=== PATIENT | male | born 1950 | race Caucasian/White ===

== ENCOUNTER 2016-06-17 08:14 | Outpatient (CLI) | payer OTHER ==
[2016-06-17] MEDS ORDERED: FLUMAZENIL 0.5 MG/5 ML MDV IVP ONE (09:13)
[2016-06-17] MEDS ORDERED: NALOXONE HCL 0.4 MG/ML INJ ONE (09:14)
[2016-06-17] MEDS ORDERED: fentaNYL 100 MCG/2 ML INJ ONE (09:14)
[2016-06-17] MEDS ORDERED: MIDAZOLAM 2 MG/2 ML VIAL ONE (09:14)
--- NOTE | 2016-06-17 10:49 | MR ---
MRI of the Brain (Without Contrast) at 0 949 hours Clinical Indication: R 41.3, memory problems Technique: T1-weighted images were acquired axially and sagittally from the foramen magnum to the ve rtex. Axial fast inversion recovery, fast T2-weighted, and diffusion-weighted axial images were obta ined without contrast. Findings: The ventricles, cisterns, and sulci are normal without atrophy. No hydrocephalus, midline shift, herniation, or epidural/subdural hematomas. No intracranial hemorrhage or masses. Diffusion we ighted sequence demonstrates no acute infarct. Cerebellar tonsils are in normal position. Pituitary g land is normal in size. Normal signal flow-void in the superior sagittal sinus, basilar artery, and b ilateral internal carotid arteries indicating patency. Moderate opacification bilateral ethmoid sinus es and mild peripheral opacification bilateral maxillary, sphenoid and frontal sinuses. Scattered hyp erintense T2/FLAIR signal foci throughout bilateral cerebral white matter. Impression: 1. Moderate bilateral sinusitis 2. No acute infarct, hemorrhage, hydrocephalus, mass effect, or herniation. 3. Multiple nonspecific hyperintense T2/FLAIR signal abnormalities in the white matter of bilateral c erebral hemispheres. Differential diagnosis includes moderate microvascular ischemic gliosis, post-i nfectious/post-inflammatory sequela, versus less likely atypical demyelinating disease, or migraine-r elated sequela.
== END 2016-06-17 10:45 | disposition home or self-care (01) ==
LOC: FIMAGING 08:14
PROVIDERS: ATTEND Psychiatry & Neurology Neurology
DX: J01.90 Acute sinusitis, unspecified (principal); R41.3 Other amnesia
CPT/HCPCS: J2250; J2310; J3010

== ENCOUNTER 2016-09-01 15:10 | Emergency (ER) | payer OTHER ==
[2016-09-01 15:18] VITALS: RESP 16
--- NOTE | 2016-09-01 15:36 | CPEKG ---
Heart Rate: 56 RR Interval: 1071 P-R Interval: 160 QRSD Interval: 92 QT Interval: 404 QTC Interval: 390 P [place]: 15 QRS [place]: 20 T Wave [place]: 38 EKG Severity - NORMAL ECG - EKG Impression: SINUS RHYTHM Electronically Signed By: Bi Graham 01-Sep-2016 17:29:53
--- NOTE | 2016-09-01 15:38 | EDPHY ---
H & P Stated Complaint: CP Left side intermittant, Hx stents sees Anabella. Time Seen by Provider: 09/01/16 15:37 HPI/ROS: CHIEF COMPLAINT: Chest pain HISTORY OF PRESENT ILLNESS: The patient presents to the ED with complaints of intermittent chest pain for the past 2 days. The patient reports his chest pain is nonexertional. It starts in the left side and radiates to the right side of the chest. He denies any nausea, vomiting or diaphoresis. The patient denies exertional chest pain or shortness of breath. The patient last experienced chest pain while in the triage area. The patient is currently chest pain-free. Patient denies asymmetric calf pain or swelling, fever, cough or additional medical complaints. Patient does have a history of coronary artery disease status post multiple stents in March 2015. REVIEW OF SYSTEMS: A comprehensive 10 point review of systems is otherwise negative aside from elements mentioned in the history of present illness. Source: Patient Exam Limitations: No limitations - Personal History Current Tetanus/Diphtheria Vaccine: Yes Current Tetanus Diphtheria and Acellular Pertussis (TDAP): Yes Tetanus Vaccine Date: 2012 - Medical/Surgical History Hx Asthma: No Hx Chronic Respiratory Disease: No Hx Diabetes: No Hx Cardiac Disease: Yes Hx Renal Disease: No Hx Cirrhosis: No Hx Alcoholism: No Hx HIV/AIDS: No Hx Splenectomy or Spleen Trauma: No Other PMH: Gerd, stents x 3. Orthopedic surgeries-jayla TSA. Appendectomy - Social History Smoking Status: Never smoked - Physical Exam Exam: General Appearance: Alert, no distress Eyes: Pupils equal and round no pallor or injection ENT, Mouth: Mucous membranes moist Respiratory: There are no retractions, lungs are clear to auscultation Cardiovascular: Regular rate and rhythm Gastrointestinal: Abdomen is soft and nontender, no masses, bowel sounds normal Neurological: A&O, normal motor function, normal sensory exam, normal cranial nerves Skin: Warm and dry, no rashes Musculoskeletal: Neck is supple nontender Extremities: symmetrical, full range of motion Constitutional: Initial Vital Signs Temperature (C) 36.8 C 09/01/16 15:13 Heart Rate 59 L 09/01/16 15:13 Respiratory Rate 16 09/01/16 15:13 Blood Pressure 149/56 H 09/01/16 15:13 O2 Sat (%) 95 09/01/16 15:13 O2 Delivery Mode Room Air Allergies/Adverse Reactions: No Known Allergies Allergy (Verified 09/01/16 15:18) Home Medications: Medication Instructions Recorded Sertraline HCl [Zoloft 100mg (*)] 150 mg PO DAILY 04/18/15 Aspirin EC [Aspirin EC 325 mg (*)] 325 mg PO DAILY #90 tab 04/19/15 Lisinopril [Zestril 10 mg (*)] 10 mg PO DAILY #90 tab 04/19/15 Metoprolol Succinate Xr [Toprol Xl 25 mg PO DAILY #90 tab 04/19/15 25 mg (*)] Atorvastatin Calcium [Lipitor 40 40 mg PO DAILY 04/30/15 mg (*)] Ibuprofen [Motrin] 2 - 4 tab PO BID PRN 04/30/15 Nitroglycerin [Nitrostat 0.4 mg 0.4 mg SL PRN PRN #1 btl 05/01/15 (*)] Medical Decision Making - Diagnostics EKG Interpretation: EKG: Complete interpretation has been separately recorded in the [employer] archive. Summary impression: Sinus rhythm, no acute change when compared to prior EKG ED Course/Re-evaluation: The patient presents the ED with 2 days of atypical chest pain. The patient's EKG and troponin are normal. I have had a discussion with the patient about possible etiologies. He does understand that we have not fully exclude the presence of progressive coronary artery disease. At this point time he has no evidence of myocardial infarction. The patient was offered admission to the hospital for observation this evening however he prefers to go home and follow up with his anesthesiologist assistant tomorrow morning. He does understand return to the ED for protracted chest pain, shortness of breath, difficulty breathing or other concerns. Differential Diagnosis: Differential diagnosis considered includes pericarditis, myocarditis, esophageal spasm, myocardial infarction - Data Points Laboratory Results: Laboratory Results 09/01/16 15:46 09/01/16 15:46 09/01/16 09/01/16 15:46 15:46 WBC 7.25 10^3/uL 10^3/uL (3.80-9.50) RBC 4.19 10^6/uL L 10^6/uL (4.40-6.38) Hgb 13.3 g/dL L g/dL (13.7-17.5) Hct 38.6 % L % (40.0-51.0) MCV 92.1 fL fL (81.5-99.8) MCH 31.7 pg pg (27.9-34.1) MCHC 34.5 g/dL g/dL (32.4-36.7) RDW 12.1 % % (11.5-15.2) Plt Count 165 10^3/uL 10^3/uL (150-400) MPV 10.4 fL fL (8.7-11.7) Neut % (Auto) 66.4 % % (39.3-74.2) Lymph % (Auto) 20.3 % % (15.0-45.0) [place] % (Auto) 7.4 % % (4.5-13.0) Eos % (Auto) 5.1 % % (0.6-7.6) Baso % (Auto) 0.7 % % (0.3-1.7) Nucleat RBC Rel Count 0.0 % % (0.0-0.2) Absolute Neuts (auto) 4.81 10^3/uL 10^3/uL (1.70-6.50) Absolute Lymphs (auto) 1.47 10^3/uL 10^3/uL (1.00-3.00) Absolute Monos (auto) 0.54 10^3/uL 10^3/uL (0.30-0.80) Absolute Eos (auto) 0.37 10^3/uL 10^3/uL (0.03-0.40) Absolute Basos (auto) 0.05 10^3/uL 10^3/uL (0.02-0.10) Absolute Nucleated RBC 0.00 10^3/uL 10^3/uL (0-0.01) Immature Gran % 0.1 % % (0.0-1.1) Immature Gran # 0.01 10^3/uL 10^3/uL (0.00-0.10) Sodium 141 mEq/L mEq/L (134-144) Potassium 4.6 mEq/L mEq/L (3.5-5.2) Chloride 106 mEq/L mEq/L (97-110) Carbon Dioxide 24 mEq/l mEq/l (22-31) Anion Gap 11 mEq/L mEq/L (8-16) BUN 25 mg/dL H mg/dL (7-23) Creatinine 1.2 mg/dL mg/dL (0.7-1.3) Estimated GFR > 60 Glucose 140 mg/dL H mg/dL (70-100) Calcium 9.6 mg/dL mg/dL (8.5-10.4) Troponin I < 0.012 ng/mL ng/mL (0-0.034) Departure - Departure Disposition: Home, Routine, Self-Care Clinical Impression: Chest pain Condition: Good Instructions: Chest Pain (ED) Additional Instructions: 1. Based upon the testing done in the Emergency Department today we see no evidence of a heart attack. 2. We are unable to fully exclude coronary artery disease based upon the testing available in the Emergency Department. 3. For this reason, we would like you to be seen by cardiology for consideration of additional testing within the next 3 days. 4. Please contact the anesthesiologist assistant you have been referred to schedule this appointment as soon as possible. Their offices are typically open from 8:30am- 5pm M-F. 5. Please return to the Emergency Department immediately for any recurrent chest pain, difficulty breathing or other concerns. Referrals: Dennys Lin MD [Primary Care Provider] - As per Instructions Brandyn Kyle MD [Medical Doctor] - As per Instructions
[2016-09-01 16:13] LABS: % IMMATURE GRANULYOCYTES 0.1 % (0.0-1.1); ABSOLUTE IMMATURE GRANULOCYTES 0.01 10^3/uL (0.00-0.10); ADD DIFF? NO; ADD MORPH? NO; ADD SCAN? NO; ATYPICAL LYMPHOCYTE FLAG 10 (0-99); FRAGMENT RBC FLAG 0 (0-99); HEMATOCRIT 38.6 % (40.0-51.0); HEMOGLOBIN 13.3 g/dL (13.7-17.5); LEFT SHIFT FLG 0 (0-99); LIPEMIA HEMOLYSIS FLAG 90 (0-99); MEAN CELL HEMOGLOBIN 31.7 pg (27.9-34.1); MEAN CELL HEMOGLOBIN CONCENTR. 34.5 g/dL (32.4-36.7); MEAN CELL VOLUME 92.1 fL (81.5-99.8); MEAN PLATELET VOLUME 10.4 fL (8.7-11.7); PLATELET CLUMPS FLAG 10 (0-99); PLATELET COUNT 165 10^3/uL (150-400); RED BLOOD CELL COUNT 4.19 10^6/uL (4.40-6.38); RED CELL DISTRIBUTION WIDTH 12.1 % (11.5-15.2)
[2016-09-01 16:35] LABS: ANION GAP 11 mEq/L (8-16); CALCIUM 9.6 mg/dL (8.5-10.4); CARBON DIOXIDE 24 mEq/l (22-31); CHLORIDE 106 mEq/L (97-110); CREATININE 1.2 mg/dL (0.7-1.3); GLOMERULAR FILTRATION RATE > 60; GLUCOSE 140 mg/dL (70-100); POTASSIUM 4.6 mEq/L (3.5-5.2); SODIUM 141 mEq/L (134-144)
[2016-09-01 16:46] LABS: TROPONIN I < 0.012 ng/mL (0-0.034)
[2016-09-01 18:02] VITALS: BP 140/58; PULSE 53; TEMP 98.1; O2SAT 98
== END 2016-09-01 18:02 | disposition home or self-care (01) ==
DX: R07.9 Chest pain, unspecified (principal); Z79.82 Long term (current) use of aspirin; Z95.5 Presence of coronary angioplasty implant and graft